=== PATIENT | female | born 1960 ===

== ENCOUNTER 2018-02-20 14:35 | Emergency (ER) | payer OTHER ==
[2018-02-20 14:35] VITALS: BMI 50.0
[2018-02-20 15:12] VITALS: RESP 20; O2SAT 99
--- NOTE | 2018-02-20 17:34 | C.PDOC ---
History Of Present Illness <Julia Gold - Last Filed: 02/20/18 19:01> <Kristan Franz - Last Filed: 02/20/18 22:28> 57 y/o female with history of DM and HTN presents to ED with complaints of worsening leg swelling for 1 week with associated sob when lying down or walking. Patient states she used to be able to walk a mile but for 1 week she can only walk 1 block. Patient is compliant with medications and states she was a former smoker but quit 4 years ago. Patient denies chest pain, fever, chills, nausea, vomiting or any other complaints at this time. (Julia Gold) History Per: Patient History/Exam Limitations: no limitations Onset/Duration Of Symptoms: Days Current Symptoms Are (Timing): Still Present <Julia Gold - Last Filed: 02/20/18 19:01> <Kristan Franz - Last Filed: 02/20/18 22:28> Time Seen by Provider: 02/20/18 16:37 Chief Complaint (Nursing): Lower Extremity Problem/Injury Past Medical History Reviewed: Historical Data, Nursing Documentation, Vital Signs - Medical History PMH: Diabetes, HTN Surgical History: No Surg Hx Family History: States: No Known Family Hx - Social History Hx Alcohol Use: No Hx Substance Use: No - Immunization History Hx Tetanus Toxoid Vaccination: No Hx Influenza Vaccination: No Hx Pneumococcal Vaccination: No <Julia Gold - Last Filed: 02/20/18 19:01> Vital Signs: Last Vital Signs Temp 98.1 F 02/20/18 21:57 Pulse 72 02/20/18 21:57 Resp 20 02/20/18 21:57 BP 164/84 H 02/20/18 21:57 Pulse Ox 99 02/20/18 21:57 Review Of Systems Constitutional: Negative for: Fever, Chills Cardiovascular: Negative for: Chest Pain Respiratory: Positive for: SOB with Excertion. Negative for: Cough Musculoskeletal: Positive for: Leg Pain (swelling) Skin: Negative for: Rash Neurological: Negative for: Weakness, Numbness <Julia Gold - Last Filed: 02/20/18 19:01> Physical Exam - Physical Exam Appears: Non-toxic, No Acute Distress Skin: Warm, Dry, No Rash Head: Atraumatic, Normacephalic Oral Mucosa: Moist Neck: Normal ROM, Supple Cardiovascular: Rhythm Regular Respiratory: Normal Breath Sounds, No Rales, No Rhonchi, No Wheezing Gastrointestinal/Abdominal: Soft, No Tenderness, No Guarding, No Rebound Extremity: Pedal Edema, No Deformity, Other (+1 pitting edema to lower extremities b/l. ) Pulses: Left Dorsalis Pedis: Normal, Right Dorsalis Pedis: Normal Neurological/Psych: Oriented x3, Normal Speech, Normal Motor, Normal Sensation Gait: Steady <Julia Gold - Last Filed: 02/20/18 19:01> ED Course And Treatment - Laboratory Results Result Diagrams: 02/20/18 17:40 02/20/18 17:40 ECG: Interpreted By Me, Viewed By Me ECG Rhythm: Sinus Rhythm Interpretation Of ECG: Possible Left atrial enlargement. Different from prior done on 02/11/18 showed 78BPM, NSR Rate From EC O2 Sat by Pulse Oximetry: 99 (RA) Pulse Ox Interpretation: Normal <Julia Gold - Last Filed: 02/20/18 19:01> - Laboratory Results Result Diagrams: 02/20/18 17:40 02/20/18 17:40 Pulse Ox Interpretation: Normal Reevaluation Time: 22:17 Reassessment Condition: Improved <Kristan Franz - Last Filed: 02/20/18 22:28> Medical Decision Making <Julia Gold - Last Filed: 02/20/18 19:01> <Kristan Franz - Last Filed: 02/20/18 22:28> Medical Decision Making: pt with unchanged ekg from 9 days ago, neg trop, neg cxr, neg bnp with dec exercise tolerance and sob in last week/ elevated ddimer, get chest ct pe protocol (Julia Gold) Disposition - Disposition Disposition Time: 19:02 <Julia Gold - Last Filed: 02/20/18 19:01> Counseled Patient/Family Regarding: Studies Performed, Diagnosis, Need For Followup <Kristan Franz - Last Filed: 02/20/18 22:28> - Disposition Referrals: Lisa Chappell MD [Staff Provider] - Disposition: HOME/ ROUTINE Condition: GOOD Additional Instructions: se return if symptoms recur Prescriptions: Albuterol HFA [Ventolin HFA 90 mcg/actuation (8 g)] 2 puff IH [id number] #1 puff Instructions: Shortness of Breath (Dyspnea) (DC) Forms: [facility] (Tanzanian) - Clinical Impression Clinical Impression: Dyspnea - 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 - Scribe Statement The provider has reviewed the documentation as recorded by the Scribe <Julia Gold - Last Filed: 02/20/18 19:01> <Kristan Franz - Last Filed: 02/20/18 22:28> - Scribe Statement Presley Patel All medical record entries made by the Scribe were at my direction and personally dictated by me. I have reviewed the chart and agree that the record accurately reflects my personal performance of the history, physical exam, medical decision making, and the department course for this patient. I have also personally directed, reviewed, and agree with the discharge instructions and disposition. (Julia Gold) Physician Patient Turnover Patient Signed Over To: Kristan Franz Handoff Comments: f/u chest ct and dispo accordingly <Julia Gold - Last Filed: 02/20/18 19:01>
--- NOTE | 2018-02-20 17:36 | RAD ---
HISTORY: SOB COMPARISON: Comparison made with prior chest radiograph dated 12/06/2016 TECHNIQUE: Chest PA and lateral FINDINGS: LUNGS: No acute consolidation. The interstitial markings are slightly increased and coarsened with a few scattered peribronchial cuffing changes. Rule out sequela of reactive/inflammatory airway disease or viral illness. PLEURA: No significant pleural effusion identified. No pneumothorax apparent. CARDIOVASCULAR: Heart appears mildly enlarged. OSSEOUS STRUCTURES: No significant abnormalities. VISUALIZED UPPER ABDOMEN: Normal. OTHER FINDINGS: None. IMPRESSION: No acute consolidation. The interstitial markings are slightly increased and coarsened with a few scattered peribronchial cuffing changes. Rule out sequela of reactive/inflammatory airway disease or viral illness.
[2018-02-20 17:45] LABS: BASO # 0.1 K/uL (0.0-0.2); EOS # 0.3 K/uL (0.0-0.7); EOS % 3.9 % (0.0-4.0); LYMPH # 2.5 K/uL (1.0-4.3); LYMPH % 34.4 % (20.0-40.0); MEAN CELL VOLUME 89.6 fL (81.0-99.0); MEAN CORPUSCULAR HEMOGLOBIN 30.4 pg (27.0-31.0); MEAN PLATELET VOLUME 10.1 fL (7.2-11.7); MONO # 0.6 K/uL (0.0-0.8); MONO % 8.8 % (0.0-10.0); NEUT # 3.8 K/uL (1.8-7.0); NEUT % 51.9 % (50.0-75.0); NRBC % 0.3 % (0.0-2.0); RBC 3.93 Mil/uL (3.80-5.20); WHITE BLOOD COUNT 7.4 K/uL (4.8-10.8)
[2018-02-20 17:51] LABS: SQUAMOUS EPITHIAL 2 /hpf (0-5); URINE BILIRUBIN NEGATIVE (NEGATIVE); URINE BLOOD NEGATIVE (NEGATIVE); URINE CLARITY Clear (Clear); URINE COLOR Yellow (YELLOW); URINE GLUCOSE (UA) 3+ mg/dL (Normal); URINE LEUKOCYTE ESTERASE NEG Leu/uL (Negative); URINE PROTEIN 1+ mg/dL (NEGATIVE); URINE UROBILINOGEN NORMAL mg/dL (0.2-1.0)
[2018-02-20 17:58] LABS: URINE BACTERIA RARE (<OCC)
[2018-02-20 18:02] LABS: ALB/GLOB RATIO 1.1 (1.0-2.1); ALBUMIN 3.9 g/dL (3.5-5.0); ALT/SGPT 37 U/L (9-52); AST/SGOT 34 U/L (14-36); BLOOD UREA NITROGEN 11 mg/dL (7-17); CALCIUM 9.4 mg/dl (8.6-10.4); GFR AFRICAN-AMERICAN > 60; GFR NON-AFRICAN AMERICAN > 60
[2018-02-20 18:07] LABS: B-TYPE NATRIURETIC PEPTIDE 280 pg/mL (0-900)
[2018-02-20] MEDS ORDERED: Iodixanol 320 MG/ML 100 ML BOTTLE IV ONE (20:06)
[2018-02-20 21:58] VITALS: BP 164/84; PULSE 72; TEMP 98.1
--- NOTE | 2018-02-20 22:02 | CT ---
EXAM: CT Angiography Chest With Intravenous Contrast CLINICAL HISTORY: 57 years old, female; Signs and symptoms; Shortness of breath; Additional info: SOB wiht exertion, leg swelling TECHNIQUE: Axial computed tomographic angiography images of the chest with intravenous contrast using pulmonary embolism protocol. All CT scans at this facility use one or more dose reduction techniques, viz.: automated exposure control; ma/kV adjustment per patient size (including targeted exams where dose is matched to indication; i.e. head); or iterative reconstruction technique. MIP reconstructed images were created and reviewed. Coronal and sagittal reformatted images were created and reviewed. CONTRAST: 100 mL of visipaque 320 administered intravenously. COMPARISON: No relevant prior studies available. FINDINGS: Pulmonary arteries: No pulmonary embolism. Aorta: Minimal atherosclerotic disease. No aneurysm. Lungs: Mosaic pattern of lung parenchyma. Mild interlobular septal thickening. No consolidation. Pleural space: No significant effusion. No pneumothorax. Heart: Borderline cardiomegaly. No significant pericardial effusion. Minimal coronary artery calcifications. Mediastinum: Probable small hiatal hernia. Bones/joints: No acute fracture. Soft tissues: Unremarkable. Lymph nodes: Several subcentimeter/few borderline enlarged short axis mediastinal lymph nodes. Few subcentimeter short axis hilar lymph nodes. IMPRESSION: 1. No CT evidence of pulmonary embolism. 2. Probable mild interstitial edema. Clinical correlation is needed. 3. Incidental/non-acute findings are described above.
--- NOTE | 2018-02-21 13:30 | CARD ---
APPROVED REPORT EKG Measurement Heart [id number] <Conclusion> Normal sinus rhythm Possible Left atrial enlargement Cannot rule out Anterior infarct, age undetermined Abnormal ECG
== END 2018-02-20 22:43 | disposition home or self-care (01) ==
LOC: C.ER 14:35
DX: R06.00 Dyspnea, unspecified (principal)
CPT/HCPCS: 71046; 71275; 80053; 81001; 83880; 84484; 85025; 85378; 93005; 99285; Q9967

== ENCOUNTER 2019-01-29 09:24 | Outpatient (CLI) | payer OTHER | END 2019-01-29 09:25 | disposition home or self-care (01) | LOC: C.CARD 09:24 ==